=== PATIENT | female | born 1980 | race Asian ===

== ENCOUNTER 2022-03-14 20:40 | Inpatient (IN) | payer OTHER ==
[2022-03-14] MEDS ORDERED: CITRIC ACID/SODIUM CITRATE 30 ML UNIT-DOSE CUP PO ONE (21:20)
[2022-03-14 21:47] LABS: BASO % 0.4 % (0-2.0); EOS % 0.2 % (0-4.5); HEMATOCRIT 28.5 % (32.4-45.2); HEMOGLOBIN 9.5 GM/dL (10.7-15.3); LYMPH % 26.5 % (8-40); MCH 24.9 pg (25.7-33.7); MCHC 33.5 g/dl (32.0-36.0); MEAN CELL VOLUME 74.5 fl (80-96); MEAN PLT VOLUME 9.2 fl (7.5-11.1); MONO % 8.5 % (3.8-10.2); NEUT % 64.4 % (42.8-82.8); PLATELET COUNT 273 10^3/uL (134-434); RBC 3.82 M/mm3 (3.60-5.2); RDW 13.9 % (11.6-15.6); WHITE BLOOD COUNT 9.9 K/mm3 (4.0-10.0)
[2022-03-14 21:59] LABS: INR 0.9 (0.83-1.09); PROTHROMBIN TIME (PATIENT) 10.3 SEC (9.7-13.0)
[2022-03-14 22:02] LABS: ACTIVATED PTT 27.5 SECONDS (25.2-36.5)
[2022-03-14 22:35] LABS: BLOOD UREA NITROGEN 14.4 mg/dL (7-18); CALCIUM 8.3 mg/dL (8.5-10.1)
[2022-03-14 22:38] LABS: CREATININE 0.8 mg/dL (0.55-1.3)
[2022-03-14] MEDS ORDERED: OXYTOCIN 20 UNITS in 0.9% NS 20 UNIT/1,000 ML INFUS.BAG IV ONE (22:53)
[2022-03-14] MEDS ORDERED: ACETAMINOPHEN INJECTION 100 ML IVPB ONE (22:53)
[2022-03-14] MEDS ORDERED: morphine SULFATE/PF 1 MG/2 ML (2cc Syringe - QUVA) ONE (22:54)
[2022-03-14] MEDS ORDERED: ePHEDrine SULFATE 50 MG/1 ML AMPULE ONE (22:55)
[2022-03-14] MEDS ORDERED: PHENYLEPHRINE HCL 10 MG/1 ML SINGLE DOSE VIAL ONE (22:56)
[2022-03-14] MEDS ORDERED: ceFAZolin SODIUM 1 GM VIAL ONE (22:59)
[2022-03-14 23:13] VITALS: BMI 26.9
[2022-03-14] MEDS ORDERED: ONDANSETRON 4 MG/2 ML VIAL ONE (23:22)
[2022-03-14 23:29] LABS: HIV INTERPRETATION NEGATIVE (NEGATIVE)
[2022-03-14] MEDS: OXYTOCIN 20 UNITS in 0.9% NS 20 UNIT/1,000 ML INFUS.BAG IV SCH (23:40)
[2022-03-14] MEDS ORDERED: MIDAZOLAM HCL 2 MG/2 ML SINGLE DOSE VIAL ONE (23:57)
[2022-03-15] MEDS ORDERED: KETOROLAC TROMETHAMINE 30 MG/1 ML VIAL ONE (00:29)
[2022-03-15] MEDS: DEXTROSE 5%-LACTATED RINGERS 1,000 ML IV SCH ×2 (00:51→21:58)
[2022-03-15 00:52] LABS: CORD HCO3 29.3 mmHg (20-29); CORD PCO2 81.1 mmHg (30-78); CORD pH 7.175 (7.14-7.44)
[2022-03-15 00:53] LABS: CORD BASE EXCESS -2.1 mmol/L (0-2); CORD HCO3 26.8 mmHg (20-29); CORD PCO2 63.6 mmHg (30-78); CORD pH 7.243 (7.14-7.44)
[2022-03-15] MEDS ORDERED: DEXTROSE 5%-NORMAL SALINE 1,000 ML IV SCH (01:15)
[2022-03-15] MEDS ORDERED: ONDANSETRON 4 MG/2 ML VIAL IVPUSH PRN (01:19)
[2022-03-15] MEDS ORDERED: OXYTOCIN 20 UNITS in 0.9% NS 20 UNIT/1,000 ML INFUS.BAG IV ONE (01:59)
[2022-03-15] MEDS: OXYTOCIN 20 UNITS in 0.9% NS 20 UNIT/1,000 ML INFUS.BAG IV SCH (02:50)
[2022-03-15] MEDS: FERROUS SO4 325 MG TABLET (FP) PO SCH ×2 (10:09→21:04)
[2022-03-15] MEDS: PRENATAL VITAMINS W/ FOLIC ACID TABLET (FP) PO SCH (10:09)
[2022-03-15] MEDS: ACETAMINOPHEN 325 MG TABLET (FP) PO PRN (18:51)
[2022-03-15] MEDS: SENNOSIDES/DOCUSATE COMBO (SENNA PLUS) TABLET (UD) PO PRN (21:04)
[2022-03-15] MEDS ORDERED: INSULIN (LEVEMIR) 100 UNITS/ML UNITS SQ ONE (21:15)
[2022-03-16] MEDS: IBUPROFEN 600 MG TABLET (FP) PO PRN ×2 (01:40→11:53)
[2022-03-16] MEDS: SIMETHICONE 80 MG TAB.CHEW (FP) PO PRN ×3 (01:42→19:30)
[2022-03-16 08:36] LABS: BASO % 0.3 % (0-2.0); EOS % 0.8 % (0-4.5); HEMATOCRIT 20.8 % (32.4-45.2); LYMPH % 18.7 % (8-40); MCHC 33.2 g/dl (32.0-36.0); MEAN CELL VOLUME 75.3 fl (80-96); MEAN PLT VOLUME 9.2 fl (7.5-11.1); MONO % 8.3 % (3.8-10.2); NEUT % 71.9 % (42.8-82.8); PLATELET COUNT 220 10^3/uL (134-434); RBC 2.76 M/mm3 (3.60-5.2); RDW 13.9 % (11.6-15.6); WHITE BLOOD COUNT 9.4 K/mm3 (4.0-10.0)
[2022-03-16 08:38] LABS: HEMOGLOBIN 6.9 GM/dL (10.7-15.3)
[2022-03-16] MEDS: FERROUS SO4 325 MG TABLET (FP) PO SCH ×2 (10:17→21:14)
[2022-03-16] MEDS: PRENATAL VITAMINS W/ FOLIC ACID TABLET (FP) PO SCH (10:17)
[2022-03-16] MEDS: oxyCODONE HCL 5 MG TABLET PO PRN (19:30)
[2022-03-16] MEDS ORDERED: IRON SUCROSE INJECTION 300 MG in SODIUM CHLORIDE 235 ML IVPB ONE (20:00)
[2022-03-16] MEDS ORDERED: INSULIN (LEVEMIR) 100 UNITS/ML UNITS SQ ONE (21:43)
[2022-03-17] MEDS: SENNOSIDES/DOCUSATE COMBO (SENNA PLUS) TABLET (UD) PO PRN ×2 (00:05→22:00)
[2022-03-17] MEDS: oxyCODONE HCL 5 MG TABLET PO PRN ×3 (00:05→15:44)
[2022-03-17] MEDS: SIMETHICONE 80 MG TAB.CHEW (FP) PO PRN ×4 (00:05→22:00)
[2022-03-17] MEDS: IBUPROFEN 600 MG TABLET (FP) PO PRN ×3 (01:54→22:00)
[2022-03-17] MEDS: NIFEdipine E.R. 30 MG TABLET PO SCH (07:51)
[2022-03-17] MEDS ORDERED: INSULIN (LEVEMIR) 100 UNITS/ML UNITS SQ ONE (08:00)
[2022-03-17] MEDS: PRENATAL VITAMINS W/ FOLIC ACID TABLET (FP) PO SCH (10:16)
[2022-03-17] MEDS: FERROUS SO4 325 MG TABLET (FP) PO SCH ×2 (10:17→22:00)
[2022-03-18] MEDS: ACETAMINOPHEN 325 MG TABLET (FP) PO PRN (05:43)
[2022-03-18 06:31] VITALS: RESP 16
[2022-03-18] MEDS: oxyCODONE HCL 5 MG TABLET PO PRN (08:00)
[2022-03-18] MEDS: SIMETHICONE 80 MG TAB.CHEW (FP) PO PRN (08:01)
[2022-03-18] MEDS: NIFEdipine E.R. 30 MG TABLET PO SCH (09:40)
[2022-03-18] MEDS: FERROUS SO4 325 MG TABLET (FP) PO SCH ×2 (09:40→21:27)
[2022-03-18] MEDS: PRENATAL VITAMINS W/ FOLIC ACID TABLET (FP) PO SCH (09:40)
[2022-03-18 09:52] LABS: BASO % 0.5 % (0-2.0); EOS % 2.1 % (0-4.5); HEMATOCRIT 21.3 % (32.4-45.2); LYMPH % 18.9 % (8-40); MEAN CELL VOLUME 75.8 fl (80-96); MEAN PLT VOLUME 8.8 fl (7.5-11.1); MONO % 7.6 % (3.8-10.2); NEUT % 70.9 % (42.8-82.8); PLATELET COUNT 302 10^3/uL (134-434); RBC 2.81 M/mm3 (3.60-5.2); RDW 14.6 % (11.6-15.6); WHITE BLOOD COUNT 8.8 K/mm3 (4.0-10.0)
[2022-03-18 11:12] VITALS: BP 144/81; PULSE 108; TEMP 97.7
[2022-03-18] MEDS: IBUPROFEN 600 MG TABLET (FP) PO PRN (13:32)
== END 2022-03-18 21:30 | disposition home or self-care (01) | DRG 540 ==
LOC: JLDR 20:40 → J3W 03-15 02:45
PROVIDERS: ADMIT Obstetrics & Gynecology Maternal & Fetal Medicine; ATTEND Obstetrics & Gynecology Maternal & Fetal Medicine
PROC: 10D00Z1 Extraction of Products of Conception, Low, Open Approach (ICD-10-PCS; principal; 2022-03-15)
PROC: 0UL70ZZ Occlusion of Bilateral Fallopian Tubes, Open Approach (ICD-10-PCS; 2022-03-15)
DX: O34.211 Maternal care for low transverse scar from previous cesarean delivery (principal); O24.415 Gestational diabetes mellitus in pregnancy, controlled by oral hypoglycemic drugs; O99.013 Anemia complicating pregnancy, third trimester; D63.8 Anemia in other chronic diseases classified elsewhere; Z3A.37 37 weeks gestation of pregnancy; Z37.0 Single live birth; R03.0 Elevated blood-pressure reading, without diagnosis of hypertension; Z30.2 Encounter for sterilization
CPT/HCPCS: 36415; 36600; 80048; 82803; 82962; 83036; 85025; 85610; 85730; 86780; 86850; 86900; 86901; 87389; 88302-TC; 88307-TC; C9803-CS; J1756; U0003; U0005